=== PATIENT | male | born 1960 | race Caucasian/White ===

== ENCOUNTER 2016-10-29 12:27 | Day surgery (SDC) | payer MEDICARE, MEDICAID ==
[2016-10-29] VITALS (7 sets, daily range): BP systolic 123–135; BP diastolic 81–95; PULSE 61–80; RESP 16–18; TEMP 96–98; O2SAT 97–98
[~2016-10-29] VITALS: Ht 170.2 cm; Wt 71.0 kg
[~2016-10-29 12:27] MED LIST: ALBUAER3 INH; ALPR.25 PO; ASPI81TA11 PO; CARV6.25 PO; HYDR25TA35 PO; IPRASOL NEB; OXYC-392 PO; PRED5PAK2 PO; SACU1TAB PO; SPIR25TA PO; SYMB80AE INH; ZITH250T PO
[2016-10-29] MEDS ORDERED: CHLORHEXIDINE GLUCONATE 2 % 1 PACK (2 CLOTHS) TOPICAL SCH (13:00)
[2016-10-29] MEDS ORDERED: INSULIN HUMAN REGULAR 1,000 UNITS/10 ML VIAL SQ PRN (13:00)
[2016-10-29] MEDS ORDERED: SODIUM CHLORID 0.9% 500 ML IV PRN (13:00)
[2016-10-29] MEDS ORDERED: NS 1000 ML IV SCH (13:00)
[2016-10-29] MEDS ORDERED: CHLORHEXIDINE GLUCONATE 2 % 1 PACK (2 CLOTHS) TOPICAL PRN (13:00)
[2016-10-29] MEDS ORDERED: POVIDONE IODINE 5% (ANTISEPSIS KIT) 4 APPLICATIONS EACH NARE PRN (13:00)
[2016-10-29] MEDS ORDERED: LACTATED RINGER'S 1000 ML IV PRN (13:00)
[2016-10-29] MEDS ORDERED: MUPIROCIN 2% OINT 1 APPLIC/GM SYR NASAL SCH (13:00)
[2016-10-29] MEDS ORDERED: METOPROLOL TARTRATE 25 MG TAB PO PRN (13:00)
[2016-10-29] MEDS ORDERED: POVIDONE IODINE 5% (ANTISEPSIS KIT) 4 APPLICATIONS EACH NARE SCH (13:00)
[2016-10-29] MEDS ORDERED: ceFAZolin 2 GM PREMIX 50 ML IV SCH (13:00)
[2016-10-29 13:31] LABS: AUTOMATED NEUTROPHIL # 5.2 TH/MM3 (1.8-7.7); BASOPHIL # 0.1 TH/MM3 (0-0.2); BASOPHIL % 0.8 % (0.0-2.0); EOSINOPHIL # 0.2 TH/MM3 (0-0.4); EOSINOPHIL % 2.3 % (0.0-4.0); HEMATOCRIT 45.2 % (39.0-51.0); HEMO FLAGS DIFF FINAL; LYMPH % 23.5 % (9.0-44.0); LYMPHOCYTE # 1.9 TH/MM3 (1.0-4.8); MEAN CELL VOLUME 90.9 FL (80.0-100.0); MEAN CORPUSCULAR HEMOGLOBIN 32.2 PG (27.0-34.0); MEAN CORPUSCULAR HGB CONC 35.4 % (32.0-36.0); MONO % 10.3 % (0.0-8.0); NEUT % 63.1 % (16.0-70.0); PLATELET COUNT 210 TH/MM3 (150-450); RED BLOOD COUNT 4.97 MIL/MM3 (4.50-5.90); RED CELL DISTRIBUTION WIDTH 13.9 % (11.6-17.2); WHITE BLOOD COUNT 8.2 TH/MM3 (4.0-11.0)
[2016-10-29 13:42] LABS: APTT (PATIENT) 27.6 SEC (24.3-30.1); INTERNATIONAL NORMALIZED RATIO 0.9 RATIO; PROTHROMBIN TIME - PATIENT 10.2 SEC (9.8-11.6)
[2016-10-29 14:03] LABS: BICARBONATE 27.4 MEQ/L (21.0-32.0)
[2016-10-29] MEDS ORDERED: ALBUAER3 INH (14:15)
[2016-10-29] MEDS ORDERED: SODIUM CHLOR 0.9% 250 ML INJ 250 ML ONE (15:08)
[2016-10-29] MEDS ORDERED: VANCOMYCIN HCL 1000 MG VIAL ONE (15:08)
[2016-10-29] MEDS ORDERED: MIDAZOLAM HCL 2 MG/2 ML VIAL ONE (17:48)
[2016-10-29] MEDS ORDERED: LIDOCAINE HCL 2% 50 ML VIAL ONE (17:49)
[2016-10-29] MEDS ORDERED: PROPOFOL 200 MG/20 ML AMP IV ONE (19:00)
[2016-10-29] MEDS ORDERED: ZOLPIDEM TARTRATE 5 MG TAB PO PRN (19:00)
[2016-10-29] MEDS ORDERED: ALBUTEROL SULFATE 90 MCG/ACT HFA 18 GM INHALER INH PRN (19:00)
[2016-10-29] MEDS ORDERED: traMADol HCL 50 MG TAB PO PRN (19:00)
[2016-10-29] MEDS ORDERED: ALBUTEROL SULFATE 90 MCG/ACT HFA 8 GM INHALER INH PRN (19:00)
[2016-10-29] MEDS ORDERED: DO NOT ADM ANY ANTICOAGULANT DRUGS PRN (20:00)
--- NOTE | 2016-10-29 20:45 | RADRPT ---
EXAM DATE/TIME: 10/29/2016 20:47 [facility] COMPARISON: CHEST SINGLE AP, July 05, 2016, 16:48. INDICATIONS : Post pacemaker placement. MEDICAL HISTORY : Chronic obstructive pulmonary disease. Lymphoma. Cardiovascular disease SURGICAL HISTORY : Pacemaker. ENCOUNTER: Initial ACUITY: 1 day PAIN SCORE: Non-responsive. LOCATION: Bilateral chest FINDINGS: A single view of the chest demonstrates the lungs to be symmetrically aerated without evidence of mas s, infiltrate or effusion. The cardiomediastinal contours are unremarkable. Osseous structures are intact. There is been interval placement of a left subclavian transvenous pacer with the tip projecte d over the lower heart. There is no pneumothorax. CONCLUSION: Interval placement of left subclavian transvenous pacer with no evidence of pneumothorax. Doc Hsu MD on October 29, 2016 at 20:43 Board Certified Radiologist. This report was verified electronically.
[2016-10-29] MEDS: SACUBITRIL/VALSARTAN 24 MG-26 MG TAB PO SCH (20:50)
[2016-10-30] VITALS (12 sets, daily range): BP systolic 125–141; BP diastolic 80–96; PULSE 62–146; RESP 16–18; TEMP 97.9–98.1; O2SAT 96–97
[2016-10-30] MEDS ORDERED: VANCOMYCIN INJ 1,000 MG in SODIUM CHLOR 0.9% 250 ML INJ 250 ML IV ONE (07:00)
--- NOTE | 2016-10-30 07:04 | MP ---
cc: LIDIA KERR GLEN DATE OF SURGERY 10/29/2016 PROCEDURE Single chamber (with atrial sensing capability) AICD implantation via the left subclavian vein, AICD defibrillation threshold testing. OPERATIVE NOTE The patient was brought to the operating suite in a fasting state after having signed informed consent. The left upper chest was prepped and draped as per policy and anesthetized with 1% lidocaine. Central venous access was obtained via the left subclavian vein using modified Seldinger technique after administration of 15 cc of contrast through a left arm IV. A transverse incision was made and using blunt dissection, a subcutaneous pocket was formed down to the pectoralis fascia. Over the guidewire, an 8-Albanian sheath was placed and through this sheath, an active fixation AICD ventricular lead was introduced and its tip positioned in the right ventricular apex where good current of injury, stimulation threshold (0.8 volts) and sensitivity (9.2 mV) were demonstrated. Atrial sensing was also good at 4.5 mV in this position. The lead was secured into place using 2-0 silk ties down to the pectoralis fascia. The lead was then connected to the AICD generator which is a Biotronik Iperia device. The lead and the generator were placed in the subcutaneous pocket which was closed using 3-0 Vicryl interrupted stitches in two to three layers to close the subcutaneous tissue and then 4-0 Monocryl running stitch to close the subcuticular tissue. Overlapping Steri-Strips and a dressing were applied. Testing of the device was also done. Ventricular fibrillation was induced. The patient was successfully rescued with a 30 joules shock at a charge time was 6.4 seconds at a shock impedance of 68 ohms. The patient was not rescued at 20 joules. There were no apparent immediate complications. A portable chest x-ray is pending at the time of this dictation. CONCLUSION Successful single chamber (with atrial sensing capability) AICD implantation via the left subclavian vein using a Biotronik Iperia AICD generator, status post defibrillation threshold testing. MD REMY Mohr/DAMIEN /7:02 PM /6:55 AM MTDD
--- NOTE | 2016-10-30 08:02 | PD.CARD.PN ---
Subjective Subjective Remarks Denies pain, dyspnea, dizziness, palpitations. Objective Medications Item Value Date Time Aspirin 81 mg 10/30/16 0900 (Ecotrin Ec) DAILY/PO Sacubitril/ 1 tab 10/29/16 2100 Valsartan BID/PO 10/29/162049 (Entresto 24-26 Mg) Vital Signs / I&O Vital Signs Date Time Temp Pulse Resp B/P Pulse Ox O2 Delivery O2 Flow Rate FiO2 10/30/16 06:00 64 10/30/16 05:16 67 10/30/16 04:00 62 10/30/16 03:10 97.9 62 16 125/80 96 10/30/16 03:00 69 10/30/16 02:07 85 10/30/16 01:00 80 10/30/16 00:00 72 10/29/16 23:20 97 Nasal Cannula 10/29/16 23:20 97.8 78 16 123/81 97 10/29/16 23:00 80 10/29/16 22:00 78 10/29/16 21:00 74 10/29/16 20:14 63 10/29/16 20:10 96.0 61 16 133/93 97 10/29/16 20:10 97 Nasal Cannula 1.50 10/29/16 20:05 98 Nasal Cannula 3.00 10/29/16 20:00 97.2 67 16 99 Nasal Cannula 3 10/29/16 19:45 63 16 109/86 99 Nasal Cannula 3 10/29/16 19:30 58 16 133/93 99 Nasal Cannula 3 10/29/16 19:19 61 16 122/86 95 Nasal Cannula 3 10/29/16 14:08 98.0 78 18 135/95 98 I/O 10/29/16 10/29/16 10/29/16 10/30/16 10/30/16 10/30/16 07:00 15:00 23:00 07:00 15:00 23:00 Intake Total 400 ml 360 ml Output Total 400 ml Balance 400 ml -40 ml Intake Oral 360 ml IV Total 400 ml Output Urine Total 400 ml # Bowel Movements 0 Physical Exam AICD site clean, dry, intact, nontender, no hematoma. Laboratory Laboratory Tests Test 10/29/16 13:15 White Blood Count 8.2 TH/MM3 Red Blood Count 4.97 MIL/MM3 Hemoglobin 16.0 GM/DL Hematocrit 45.2 % Mean Corpuscular Volume 90.9 FL Mean Corpuscular Hemoglobin 32.2 PG Mean Corpuscular Hemoglobin 35.4 % Concent Red Cell Distribution Width 13.9 % Platelet Count 210 TH/MM3 Mean Platelet Volume 9.3 FL Neutrophils (%) (Auto) 63.1 % Lymphocytes (%) (Auto) 23.5 % Monocytes (%) (Auto) 10.3 % Eosinophils (%) (Auto) 2.3 % Basophils (%) (Auto) 0.8 % Neutrophils # (Auto) 5.2 TH/MM3 Lymphocytes # (Auto) 1.9 TH/MM3 Monocytes # (Auto) 0.8 TH/MM3 Eosinophils # (Auto) 0.2 TH/MM3 Basophils # (Auto) 0.1 TH/MM3 CBC Comment DIFF FINAL Differential Comment Prothrombin Time 10.2 SEC Prothromb Time International 0.9 RATIO Ratio Activated Partial 27.6 SEC Thromboplast Time Sodium Level 140 MEQ/L Potassium Level 4.0 MEQ/L Chloride Level 105 MEQ/L Carbon Dioxide Level 27.4 MEQ/L Anion Gap 8 MEQ/L Blood Urea Nitrogen 19 MG/DL Creatinine 1.21 MG/DL Estimat Glomerular Filtration 62 ML/MIN Rate Random Glucose 80 MG/DL Calcium Level 9.4 MG/DL Imaging Last 48 hours Impressions Chest X-Ray 10/29/16 0000 Signed Impressions: Service Date/Time: Saturday, October 29, 2016 20:47 - CONCLUSION: Interval placement of left subclavian transvenous pacer with no evidence of pneumothorax. Doc Hsu MD Assessment and Plan Problem List: (1) S/P implantation of automatic cardioverter/defibrillator (AICD) Assessment and Plan: Stable overnight. ICD site OK. ICD re-interrogation shows stable ICD/pacing parameters. To discharge today, same home medications plus Levaquin 500 mg qd for 5 days, one week f/u for incision/ICD recheck. (2) NICM (nonischemic cardiomyopathy) Assessment and Plan: Stable. Compensated. Patient has been on carvedilol also , will check office notes for dosing. Continue Entresto. Code Status full code Discussed Condition With patient Rajat Gordillo MD Oct 30, 2016 08:02
[2016-10-30] MEDS ORDERED: LEVA500T PO (08:05)
[2016-10-30] MEDS: SACUBITRIL/VALSARTAN 24 MG-26 MG TAB PO SCH (08:56)
[2016-10-30] MEDS ORDERED: ASPIRIN EC 81 MG TABEC PO SCH (09:00)
== END 2016-10-30 09:23 | disposition home or self-care (01) ==
LOC: HCAT 12:27 → HDIC 12:32 → HCIS 20:11 → HCAT 10-30 09:23
PROVIDERS: ATTEND Internal Medicine Cardiovascular Disease
DX: I11.0 Hypertensive heart disease with heart failure (principal); I50.20 Unspecified systolic (congestive) heart failure; I42.9 Cardiomyopathy, unspecified; R07.89 Other chest pain; J44.9 Chronic obstructive pulmonary disease, unspecified; J45.909 Unspecified asthma, uncomplicated
CPT/HCPCS: 00530; 33249; 71010; 80048; 85025; 85610; 85730; 93641; C1722; C1777; J0690; J2250; J3010; J3370; J7050

== ENCOUNTER 2016-11-21 13:03 | Emergency (ER) | payer MEDICARE, MEDICAID ==
[~2016-11-21] VITALS: Ht 170.2 cm; Wt 70.0 kg
[~2016-11-21 13:03] MED LIST changes: -ALPR.25 PO; -CARV6.25 PO; -HYDR25TA35 PO; -IPRASOL NEB; +LEVA500T PO; -PRED5PAK2 PO; -SPIR25TA PO; -SYMB80AE INH; -ZITH250T PO
[2016-11-21 13:06] VITALS: BP 153/91; PULSE 98; RESP 15; TEMP 98.1; O2SAT 98
--- NOTE | 2016-11-21 13:11 | PD ---
Physical Exam Date Seen by Provider: November 21, 2016 Time Seen by Provider: 13:09 Narrative Pt sent by doctor for evaluation of right lower leg swelling and redness, r/o blood clot. Foot is cold and numb, warmth on ankle. This started yesterday. PCP is Dr. Mora. Hx of lymphoma, pacemaker, CABG, brain aneurysm, no hx of DVT. VSS. Pt endorses daily tobacco use. VSS. Data Data Last Documented VS Vital Signs Date Time Temp Pulse Resp B/P Pulse Ox O2 Delivery O2 Flow Rate FiO2 11/21/16 13:06 98.1 98 15 153/91 98 MDM Supervised Visit with ZEKE: Delores Jj November 21, 2016 13:11
--- NOTE | 2016-11-21 13:29 | PD ---
HPI Chief Complaint: Pain: Acute or Chronic Time Seen by Provider: 13:29 Travel History International Travel<30 days: No Contact w/Intl Traveler<30days: No Traveled to known affect area: No History of Present Illness HPI 56-year-old male presents to the emergency department sent by his primary care physician, Dr. Mora. Patient complained of right leg pain that started yesterday. Patient states it is worse with walking and putting pressure. Pain is worse at the ankle joint. Patient reports recent pacemaker insertion. He was in the hospital 2 weeks ago. He has a past medical history of COPD, hypertension, hyperlipidemia, hepatitis C, non-Hodgkin's lymphoma, aneurysm, pacemaker/AICD placement, ischemic cardiomyopathy, CHF. Patient states he last uses nebulizer treatments yesterday, has not used any today. He does report chronic shortness of breath. Dr. Mora highly suspected thrombotic event in the right leg. He also was concerned of possible arterial occlusion due to coldness in the right foot. Patient also states he had a 2 L bottle of soda dropped on his left foot 2 days ago and has ecchymosis and tenderness to the left foot. Patient reports chronic shortness of breath which is not worse than normal. He denies any chest pain. PFSH Past Medical History Asthma: Yes Blood Disorders: No Anxiety: Yes Depression: No Heart Rhythm Problems: No Cancer: Yes (lymphoma) Cardiac Catheterization: Yes Cardiovascular Problems: Yes (CHF) High Cholesterol: No Chemotherapy: Yes (1999) Chest Pain: No Congestive Heart Failure: Yes COPD: Yes Diabetes: No Diminished Hearing: No Endocrine: No Gastrointestinal Disorders: No Glaucoma: No Genitourinary: No Hepatitis: Yes Hiatal Hernia: No Hypertension: Yes Immune Disorder: No Medical other: Yes (LYMPHOMA ) Musculoskeletal: Yes (arthritis) Neurologic: Yes (aneyrusym clip 2007) Psychiatric: No Reproductive: No Respiratory: Yes (COPD, ASTHMA) Integumentary: No Migraines: Yes Radiation Therapy: Yes (2000) Sleep Apnea: No Thyroid Disease: No Influenza Vaccination: No Past Surgical History Body Medical Devices: AICD 2016 Cardiac Surgery: Yes Thoracic Surgery: Yes (pt said he had a open heart surgery) Social History Alcohol Use: Yes (occassionally ) Tobacco Use: Yes Substance Use: Yes (THC, OTHERS, PT ADMITS TO IV DRUG USE) Allergies-Medications (Allergen,Severity, Reaction): Coded Allergies: No Known Allergies (Unverified , 11/21/16) Reported Meds & Prescriptions Reported Meds & Active Scripts Active Entresto (Sacubitril-Valsartan) 24-26 Mg Tab 1 Tab PO BID 30 Days Aspirin EC (Aspirin) 81 Mg Tabdr 81 Mg PO DAILY 30 Days Reported Albuterol Neb (Albuterol Sulfate) 2.5 Mg/3 Ml Neb 2.5 Mg NEB TID Diclofenac Sodium DR (Diclofenac Sodium) 75 Mg Tabdr 75 Mg PO BID Take with food or milk Gabapentin 300 Mg Cap 300 Mg PO TID Coreg (Carvedilol) 6.25 Mg Tab 6.25 Mg PO QID Hydralazine (Hydralazine HCl) 25 Mg Tab 50 Mg PO BID Take with a meal Aldactone (Spironolactone) 25 Mg Tab 25 Mg PO DAILY Proair Hfa 8.5 GM Inh (Albuterol Sulfate) 90 Mcg/Act Aer 2 Puff INH Q4HR PRN 108 mcg/actuation Review of Systems Except as stated in HPI: all other systems reviewed are Neg Physical Exam Narrative GENERAL: Well-nourished, well-developed male patient, ambulatory. Afebrile. SKIN: Focused skin assessment warm/dry. Patient has mild erythema to the right ankle joint with a faint red streak that extends up the right medial calf. No swelling. HEAD: Normocephalic. Atraumatic. EYES: No scleral icterus. No injection or drainage. NECK: Supple, trachea midline. No JVD or lymphadenopathy. CARDIOVASCULAR: Regular rate and rhythm without murmurs, gallops, or rubs. Left pedal pulse 2+. Right pedal pulse found with Doppler without issue. Capillary refill less than 2 seconds to the digits of the right foot. RESPIRATORY: Breath sounds equal bilaterally. No accessory muscle use. Lungs sounds were expiratory wheezes throughout. GASTROINTESTINAL: Abdomen soft, non-tender, nondistended. MUSCULOSKELETAL: No cyanosis, or edema. Patient has tenderness to right calf with a positive Homans sign. No swelling noted. Right foot is cooler than left foot. BACK: Nontender without obvious deformity. No CVA tenderness. Data Data Last Documented VS Vital Signs Date Time Temp Pulse Resp B/P Pulse Ox O2 Delivery O2 Flow Rate FiO2 11/21/16 13:21 80 16 11/21/16 13:06 98.1 153/91 98 Orders Albuterol-Ipratropium Neb (Duoneb Neb) (11/21/16 13:30) Iv Access Insert/Monitor (11/21/16 13:27) Complete Blood Count With Diff (11/21/16 13:27) Basic Metabolic Panel (Bmp) (11/21/16 13:27) Act Partial Throm Time (Ptt) (11/21/16 13:27) Prothrombin Time / Inr (Pt) (11/21/16 13:27) Us Leg Venous Doppler (11/21/16 ) Foot, Complete ([id number]) (11/21/16 ) Cta Runoff W Iv Contrast W 3d (11/21/16 ) Iohexol 350 Inj (Omnipaque 350 Inj) (11/21/16 15:27) Splint Or Brace Apply/Monitor (11/21/16 18:05) Labs Laboratory Tests Test 11/21/16 13:25 White Blood Count 7.8 TH/MM3 Red Blood Count 4.66 MIL/MM3 Hemoglobin 14.6 GM/DL Hematocrit 43.3 % Mean Corpuscular Volume 92.9 FL Mean Corpuscular Hemoglobin 31.3 PG Mean Corpuscular Hemoglobin 33.7 % Concent Red Cell Distribution Width 13.4 % Platelet Count 164 TH/MM3 Mean Platelet Volume 9.7 FL Neutrophils (%) (Auto) 68.3 % Lymphocytes (%) (Auto) 16.4 % Monocytes (%) (Auto) 9.9 % Eosinophils (%) (Auto) 3.4 % Basophils (%) (Auto) 2.0 % Neutrophils # (Auto) 5.3 TH/MM3 Lymphocytes # (Auto) 1.3 TH/MM3 Monocytes # (Auto) 0.8 TH/MM3 Eosinophils # (Auto) 0.3 TH/MM3 Basophils # (Auto) 0.2 TH/MM3 CBC Comment DIFF FINAL Differential Comment Prothrombin Time 10.2 SEC Prothromb Time International 0.9 RATIO Ratio Activated Partial 26.9 SEC Thromboplast Time Sodium Level 138 MEQ/L Potassium Level 3.7 MEQ/L Chloride Level 105 MEQ/L Carbon Dioxide Level 26.8 MEQ/L Anion Gap 6 MEQ/L Blood Urea Nitrogen 16 MG/DL Creatinine 1.12 MG/DL Estimat Glomerular Filtration 67 ML/MIN Rate Random Glucose 100 MG/DL Calcium Level 8.9 MG/DL MDM Medical Decision Making Medical Screen Exam Complete: Yes Emergency Medical Condition: Yes Medical Record Reviewed: Yes Interpretation(s) Last Impressions Lower Extremity Ultrasound 11/21/16 0000 Signed Impressions: Service Date/Time: November 15:36 - CONCLUSION: No DVT is identified in the right lower extremity. Juan Coley MD Foot X-Ray 11/21/16 0000 Signed Impressions: Service Date/Time: November 13:29 - CONCLUSION: Lateral, distal soft tissue swelling and an apparent nondisplaced fracture of the little toe proximal phalanx. Juan Quiñones MD Aorta w/Runoff CTA 11/21/16 0000 Signed Impressions: Service Date/Time: November 15:08 - CONCLUSION: 1. Mild scattered plaque with patent inflow, outflow, and runoff bilaterally. 2. 4 mm left lower lobe pulmonary nodule. Current guidelines suggest a repeat CT of the thorax in 12 months. Parmjit Leblanc Jr., MD Differential Diagnosis DVT versus cellulitis versus PVD Narrative Course 56-year-old male presents to the emergency department for evaluation of right calf and foot pain. There is erythema with a slight red streak that extends up the right medial calf. His primary care physician was concerned about possible arterial occlusion. Pedal pulses easily found with Doppler. Venous Doppler ultrasound the right lower extremity is ordered and pending. X-ray left foot is ordered and pending. CBC, BMP, PTT, PTT/INR ordered and pending. Patient reports chronic shortness of breath. Patient is given DuoNeb 2 due to expiratory wheezes. CTA runoff of the lower extremities is done to rule out arterial occlusion. CBC is unremarkable. BMP is unremarkable. Coags are unremarkable. Venous doppler US of the left lower extremity is negative for DVT. X-ray of the left foot shows lateral, distal soft tissue swelling and an apparent nondisplaced fracture of the little toe proximal phalanx. CT runoff of the othe lower extremities shows Mild scattered plaque with patent inflow, outflow, and runoff bilaterally. 2. 4 mm left lower lobe pulmonary nodule. Current guidelines suggest a repeat CT of the thorax in 12 months Patient is instructed to repeat CT of the thorax in 12 months and is given a copy of his CT report. My attending physician, Dr. Hird, saw patient and agrees with plan and disposition. Diagnosis Primary Impression: Peripheral artery disease Additional Impression: Toe fracture, left Qualified Code: S92.515A - Closed nondisplaced fracture of proximal phalanx of lesser toe of left foot, initial encounter Referrals: Primary Care Physician call for appointment Patient Instructions: General Instructions, Peripheral Artery Disease (ED), Toe Fracture (ED) Additional Instructions: Wear post op shoe and skinny tape small toe. Follow up with primary care physician. Repeat CT thorax in 12 months to monitor nodule. Return to the emergency department for any acute, worsening of symptoms. Med/Other Pt SpecificInfo: No Change to Meds Disposition: 01 DISCHARGE HOME Condition: Stable Marlene Berger November 21, 2016 13:29
[2016-11-21] MEDS ORDERED: RESP: ALBUTEROL 2.5 MG/IPRATROPIUM 0.5 MG NEB (SCH) INH (13:30)
[2016-11-21] MEDS ORDERED: SPIR25 PO (13:41)
[2016-11-21] MEDS ORDERED: DICL75TA PO (13:41)
[2016-11-21] MEDS ORDERED: HYDR25TA35 PO (13:41)
[2016-11-21] MEDS ORDERED: GABA300C5 PO (13:41)
[2016-11-21] MEDS ORDERED: ALBU0.08 NEB (13:41)
[2016-11-21] MEDS ORDERED: CARV6.25 PO (13:41)
[2016-11-21 13:57] LABS: AUTOMATED NEUTROPHIL # 5.3 TH/MM3 (1.8-7.7); BASOPHIL # 0.2 TH/MM3 (0-0.2); EOSINOPHIL # 0.3 TH/MM3 (0-0.4); EOSINOPHIL % 3.4 % (0.0-4.0); HEMATOCRIT 43.3 % (39.0-51.0); HEMO FLAGS DIFF FINAL; LYMPH % 16.4 % (9.0-44.0); LYMPHOCYTE # 1.3 TH/MM3 (1.0-4.8); MEAN CELL VOLUME 92.9 FL (80.0-100.0); MEAN CORPUSCULAR HEMOGLOBIN 31.3 PG (27.0-34.0); MEAN CORPUSCULAR HGB CONC 33.7 % (32.0-36.0); MONO % 9.9 % (0.0-8.0); NEUT % 68.3 % (16.0-70.0); PLATELET COUNT 164 TH/MM3 (150-450); RED BLOOD COUNT 4.66 MIL/MM3 (4.50-5.90); RED CELL DISTRIBUTION WIDTH 13.4 % (11.6-17.2); WHITE BLOOD COUNT 7.8 TH/MM3 (4.0-11.0)
[2016-11-21 14:07] LABS: APTT (PATIENT) 26.9 SEC (24.3-30.1); INTERNATIONAL NORMALIZED RATIO 0.9 RATIO; PROTHROMBIN TIME - PATIENT 10.2 SEC (9.8-11.6)
--- NOTE | 2016-11-21 14:11 | RADRPT ---
EXAM DATE/TIME: 11/21/2016 13:29 [facility] COMPARISON: No previous studies available for comparison. INDICATIONS : Distal left foot pain and swelling. MEDICAL HISTORY : Chronic obstructive pulmonary disease. Lymphoma. SURGICAL HISTORY : Cardiac cath. Chemotherapy. Radiation therapy. ENCOUNTER: Initial ACUITY: 1 week PAIN SCORE: 4/10 LOCATION: Left distal foot. FINDINGS: There is soft tissue swelling near the base of the little toe. A comminuted but essentially nondispla zack fracture involves the little toe proximal phalanx. The fracture is primarily in the mid shaft reg ion. Articular surfaces appear intact. No subluxations. No other fractures are demonstrated. Instantly seen bipartite tibial and fibular sesamoids CONCLUSION: Lateral, distal soft tissue swelling and an apparent nondisplaced fracture of the little toe proximal phalanx. Juan Quiñones MD on November 21, 2016 at 14:08 Board Certified Radiologist. This report was verified electronically.
[2016-11-21 14:14] LABS: BICARBONATE 26.8 MEQ/L (21.0-32.0); POTASSIUM 3.7 MEQ/L (3.5-5.1)
[2016-11-21] MEDS ORDERED: IOHEXOL 350 MG/ML 10 ML VIAL (for RAD DIAG) IV ONE (15:27)
--- NOTE | 2016-11-21 16:16 | RADRPT ---
EXAM DATE/TIME: 11/21/2016 15:36 [facility] COMPARISON: No previous studies available for comparison. INDICATIONS : Right leg pain. MEDICAL HISTORY : Congestive heart failure. Myocardial infarction. Hypertension. Hepatitis C. Lymphoma. SURGICAL HISTORY : Aneurysm clip. Open heart surgery. ENCOUNTER: Initial ACUITY: 1 day PAIN SCORE: 0/10 LOCATION: Right leg. TECHNIQUE: Venous ultrasound of the leg was performed from the inguinal ligament to the proximal calf. Real-lashae e, color Doppler and spectral tracing, compression and augmentation techniques were used. FINDINGS: There is normal compressibility of the deep venous system from the inguinal region to the proximal ca lf. No echogenic clot is seen in the lumen of the common femoral, femoral, popliteal, and posterior tibial veins. There is a normal response of the venous system to proximal and distal augmentation an d respiration. CONCLUSION: No DVT is identified in the right lower extremity. Juan Coley MD on November 21, 2016 at 16:13 Board Certified Radiologist. This report was verified electronically.
--- NOTE | 2016-11-21 17:38 | RADRPT ---
EXAM DATE/TIME: 11/21/2016 15:08 [facility] COMPARISON: No previous studies available for comparison. INDICATIONS : Evaluate for occlusion, right leg pain. IV CONTRAST: 80 cc Omnipaque 350 (iohexol) IV RADIATION DOSE: 15.98 CTDIvol (mGy) MEDICAL HISTORY : Hypertension. Hepatitis C. Lymphoma SURGICAL HISTORY : None. ENCOUNTER: Initial ACUITY: 1 day PAIN SCALE: 0/10 LOCATION: Runoff TECHNIQUE: Volumetric scanning was performed using a multi-row detector CT scanner. The data was post processed with a variety of visualization algorithms including full volume maximum intensity projection, multi -planar sliding thin slab reformation, curved planar reformation, and surface rendering techniques. Using automated exposure control and adjustment of the mA and/or kV according to patient size, radiat ion dose was kept as low as reasonably achievable to obtain optimal diagnostic quality images. FINDINGS: Aorta/inflow: Scattered atherosclerotic plaque throughout the infrarenal aorta. No aneurysmal change or stenosis. I n-Flow vessels are patent. Both internal iliac arteries are patent. The celiac, SMA, LAVELL and renal ar teries are patent. Right lower extremity: Scattered areas of noncalcified plaque throughout the outflow and runoff vessels without a hemodynami yao significant stenosis. Left lower extremity: Scattered areas of noncalcified plaque throughout the outflow and runoff vessels without a hemodynami yao significant stenosis. Note is made of a high origin to the anterior tibial artery arising off t he [id number] popliteal artery. Other structures: A 4 mm smoothly marginated nodules seen within the left lung base. A focal area of scarring is seen i nvolving the upper pole of the right kidney. Scattered colonic diverticuli without acute inflammation . CONCLUSION: 1. Mild scattered plaque with patent inflow, outflow, and runoff bilaterally. 2. 4 mm left lower lobe pulmonary nodule. Current guidelines suggest a repeat CT of the thorax in 12 months. Parmjit Leblanc Jr., MD on November 21, 2016 at 17:20 Board Certified Radiologist. This report was verified electronically.
--- NOTE | 2016-11-21 17:58 | PD ---
Physical Exam Narrative GENERAL: Well-nourished, well-developed patient. SKIN: Warm and dry. HEAD: Normocephalic and atraumatic. EYES: No injection or drainage. ENT: No nasal drainage noted. NECK: Supple, trachea midline. CARDIOVASCULAR: Regular rate and rhythm RESPIRATORY: no increased effort. No accessory muscle use. EXTREMITIES: Right foot is cold to touch, faintly palpable dorsalis pedis on right, no specific joint or calf pain, no lacerations over, compartments soft. NEUROLOGICAL: Awake and alert. Motor and sensory grossly within normal limits. Normal speech. Data Data Last Documented VS Vital Signs Date Time Temp Pulse Resp B/P Pulse Ox O2 Delivery O2 Flow Rate FiO2 11/21/16 13:21 80 16 11/21/16 13:06 98.1 153/91 98 Orders Albuterol-Ipratropium Neb (Duoneb Neb) (11/21/16 13:30) Iv Access Insert/Monitor (11/21/16 13:27) Complete Blood Count With Diff (11/21/16 13:27) Basic Metabolic Panel (Bmp) (11/21/16 13:27) Act Partial Throm Time (Ptt) (11/21/16 13:27) Prothrombin Time / Inr (Pt) (11/21/16 13:27) Us Leg Venous Doppler (11/21/16 ) Foot, Complete (Usf8pta) (11/21/16 ) Cta Runoff W Iv Contrast W 3d (11/21/16 ) Iohexol 350 Inj (Omnipaque 350 Inj) (11/21/16 15:27) Splint Or Brace Apply/Monitor (11/21/16 18:05) Labs Laboratory Tests Test 11/21/16 13:25 White Blood Count 7.8 TH/MM3 Red Blood Count 4.66 MIL/MM3 Hemoglobin 14.6 GM/DL Hematocrit 43.3 % Mean Corpuscular Volume 92.9 FL Mean Corpuscular Hemoglobin 31.3 PG Mean Corpuscular Hemoglobin 33.7 % Concent Red Cell Distribution Width 13.4 % Platelet Count 164 TH/MM3 Mean Platelet Volume 9.7 FL Neutrophils (%) (Auto) 68.3 % Lymphocytes (%) (Auto) 16.4 % Monocytes (%) (Auto) 9.9 % Eosinophils (%) (Auto) 3.4 % Basophils (%) (Auto) 2.0 % Neutrophils # (Auto) 5.3 TH/MM3 Lymphocytes # (Auto) 1.3 TH/MM3 Monocytes # (Auto) 0.8 TH/MM3 Eosinophils # (Auto) 0.3 TH/MM3 Basophils # (Auto) 0.2 TH/MM3 CBC Comment DIFF FINAL Differential Comment Prothrombin Time 10.2 SEC Prothromb Time International 0.9 RATIO Ratio Activated Partial 26.9 SEC Thromboplast Time Sodium Level 138 MEQ/L Potassium Level 3.7 MEQ/L Chloride Level 105 MEQ/L Carbon Dioxide Level 26.8 MEQ/L Anion Gap 6 MEQ/L Blood Urea Nitrogen 16 MG/DL Creatinine 1.12 MG/DL Estimat Glomerular Filtration 67 ML/MIN Rate Random Glucose 100 MG/DL Calcium Level 8.9 MG/DL [facility] Supervised Visit with ZEKE: Yes Interpretation(s) CBC & BMP Diagram 11/21/16 13:25 Last 24 hours Impressions Lower Extremity Ultrasound 11/21/16 0000 Signed Impressions: Service Date/Time: November 15:36 - CONCLUSION: No DVT is identified in the right lower extremity. Juan Coley MD Foot X-Ray 11/21/16 0000 Signed Impressions: Service Date/Time: November 13:29 - CONCLUSION: Lateral, distal soft tissue swelling and an apparent nondisplaced fracture of the little toe proximal phalanx. Juan Quiñones MD Aorta w/Runoff CTA 11/21/16 0000 Signed Impressions: Service Date/Time: November 15:08 - CONCLUSION: 1. Mild scattered plaque with patent inflow, outflow, and runoff bilaterally. 2. 4 mm left lower lobe pulmonary nodule. Current guidelines suggest a repeat CT of the thorax in 12 months. Parmjit Leblanc Jr., MD Narrative Course I, Dr. willis, have reviewed the advance practice practitioner's documentation and am in agreement, met with the patient face to face, made the diagnosis, and the medical decision making was done by me. *My assessment and Findings: 56-year-old male presents with right leg pain that is cool to touch. CT runoff will be added on to workup for DVT given cool leg and decreased pulse. CT runoff shows mild scattered plaque with patent flow, pulmonary nodule- patient given copy for follow-up,Patient denies any new complaints and states that they are feeling better. Patient happy with care, all questions answered. Patient knows that follow up is incumbent on them and to return to the emergency room immediately if new or worsening symptoms develop. Patient given strict return precautions, vitals reviewed and are normal, agrees to further workup as an outpatient. Diagnosis Primary Impression: Peripheral artery disease Additional Impressions: Leg pain, right Toe fracture Qualified Code: S92.912A - Closed fracture of phalanx of toe of left foot, physeal involvement unspecified, unspecified toe, initial encounter Patient Instructions: General Instructions Additional Instruction: Follow with primary this week, return as needed, Tylenol as needed Med/Other Pt SpecificInfo: No Change to Meds Disposition: 01 DISCHARGE HOME Condition: Stable Crystal Willis MD November 21, 2016 17:58
[2016-11-21 18:16] VITALS: BP 148/86
== END 2016-11-21 18:40 | disposition home or self-care (01) ==
LOC: NEPC 13:03
DX: I73.9 Peripheral vascular disease, unspecified (principal); M79.604 Pain in right leg; S92.515A Nondisplaced fracture of proximal phalanx of left lesser toe(s), initial encounter for closed fracture; J45.909 Unspecified asthma, uncomplicated; B19.20 Unspecified viral hepatitis C without hepatic coma; J44.9 Chronic obstructive pulmonary disease, unspecified; I25.5 Ischemic cardiomyopathy; I10 Essential (primary) hypertension; E78.5 Hyperlipidemia, unspecified; I50.9 Heart failure, unspecified; R06.02 Shortness of breath; Z95.810 Presence of automatic (implantable) cardiac defibrillator; Z95.0 Presence of cardiac pacemaker; Z72.0 Tobacco use
CPT/HCPCS: 73630; 75635; 80048; 85025; 85610; 85730; 93971; 94640; 94664; 99284; L3260; Q9967

== ENCOUNTER 2017-10-22 09:50 | Day surgery (SDC) | payer MEDICARE, OTHER ==
[~2017-10-22] VITALS: Ht 170.2 cm; Wt 68.4 kg
[~2017-10-22 09:50] MED LIST changes: +ALBU0.08 NEB; -ASPI81TA11 PO; +ASPI81TA23 PO; +CARV6.25 PO; +DICL75TA PO; +GABA300C5 PO; +HYDR25TA35 PO; -LEVA500T PO; -OXYC-392 PO; +SPIR25 PO
[2017-10-22] MEDS ORDERED: IOHEXOL 350 MG/ML 50 ML BTL (for Cath Lab) OTHER ONE (09:51)
[2017-10-22 10:46] VITALS: BP 136/88; PULSE 82; RESP 18; TEMP 97.8; O2SAT 97
[2017-10-22 10:53] LABS: AUTOMATED NEUTROPHIL # 6.6 TH/MM3 (1.8-7.7); BASOPHIL # 0.1 TH/MM3 (0-0.2); EOSINOPHIL # 0.1 TH/MM3 (0-0.4); EOSINOPHIL % 1.5 % (0.0-4.0); HEMATOCRIT 42.3 % (39.0-51.0); HEMOGLOBIN 14.5 GM/DL (13.0-17.0); LYMPH % 17.7 % (9.0-44.0); LYMPHOCYTE # 1.7 TH/MM3 (1.0-4.8); MEAN CELL VOLUME 91.3 FL (80.0-100.0); MEAN CORPUSCULAR HEMOGLOBIN 31.3 PG (27.0-34.0); MEAN CORPUSCULAR HGB CONC 34.3 % (32.0-36.0); MEAN PLATELET VOLUME 8.4 FL (7.0-11.0); MONO % 12.3 % (0.0-8.0); MONOCYTE # 1.2 TH/MM3 (0-0.9); NEUT % 67.5 % (16.0-70.0); PLATELET COUNT 261 TH/MM3 (150-450); RED BLOOD COUNT 4.63 MIL/MM3 (4.50-5.90); RED CELL DISTRIBUTION WIDTH 19.5 % (11.6-17.2); WHITE BLOOD COUNT 9.8 TH/MM3 (4.0-11.0)
[2017-10-22] MEDS ORDERED: NS 1000P @30 MLS/HR (KVO) IV SCH (11:00)
[2017-10-22] MEDS ORDERED: HYDR-3801 PO (11:01)
[2017-10-22 11:05] LABS: BICARBONATE 29.2 MEQ/L (21.0-32.0); CALCIUM 9.4 MG/DL (8.5-10.1); CREATININE 1.27 MG/DL (0.60-1.30)
[2017-10-22] MEDS ORDERED: MIDAZOLAM HCL 2 MG/2 ML VIAL ONE (11:16)
[2017-10-22] MEDS ORDERED: HEPARIN-NS/PF FLUSH BAG 2,000 ML IV FLUSH ONE (11:16)
[2017-10-22] MEDS ORDERED: POTASSIUM CHLORIDE 10 MEQ CONTROLLED RELEASE TAB PO STA (11:38)
--- NOTE | 2017-10-22 12:23 | CATHPROC ---
[employer] HIS Report Study Information Study Number Admission Scheduled Start Study Start [id number] Oct 22 2017 9:50AM 10/22/2017 Oct 22 2017 10:49AM [facility] Cardiac Catheterization Admit Source Facility Department Other [facility] [employer] Physician and Clinical Staff Initial Edinson Villeda Facility Practice Specialist Sondra Lewis,LEANNA Other cathlab, cathlab Recorder Sharron Salinas,BOLOGNA MAKER TECH2 Scrub Talita Vicente ,RT(R) Procedures Performed Procedure Location (Site) Vessel Name Coronary Angiograms LCA Left Coronary Coronary Angiograms RCA Right Coronary L Heart Cath Wire insertion Fem Art (right) Femoral Art Equipment Time Rn Registry Description Size Mfg Part Number Used/Scraped TRANSDUCER, TRUWAVE [id number] 11:16 NELSON GRULLON * Used W/STOCKCOCK *[id number] INTRODUCER SET, 11:16 [employer] FR 5 [id number] *[id number] Used MICROPUNCTURE STIFF [id number] *[id number] 11:16 [employer] IND[employer]RIES PACK, CCL CUSTOM * Used *[id number] 11:35 MEDTRONIC JR 4.0 DXTERITY CATHETER FR 5 Used *[id number] 11:16 Mini[employer]ke MEDICAL WIRE, 3MMJ .035 180CM 180CM Used *[id number] 11:16 NAMIC MANIFOLD, 4 PORT * Used *[id number] 11:16 NYCOMED OMNIPAQUE, 350 MG, 150ML 150ML [id number] Used [id number] 11:16 [employer] BLANKET,WARM AIR CCL * Used *[id number] 11:16 TERUMO MEDICAL SHEATH, FR5 TERUMO (10CM) FR 5 Used *[id number] Equipment Model, Serial, Lot Number and Expiration Data Description Model Number Serial Number Lot Number Expiration Date JR 4.0 DXTERITY CATHETER [id number] 04-28-2020 History: Current Medications Medication Dosage/Unit Route Frequency Last Date/Time Taken Albuterol ASA CARVEDILOL History: Allergies Allergy Reaction No Known Allergies History: Risk Factors Family History of Hypertension Dyslipidemia Previous [place] Previous Heart Failure Premature CAD Yes No Yes No No Prior Valve Prior PCI Prior CABG Surgery No No No Cerebrovascular Peripheral Artery Chronic Lung On Dialysis Diabetes Disease Disease Disease No No No Yes No History: Risk Factors Selection Items Current Smoker History: Symptoms/Diagnosis Selection Items Chest pain History: CV Disease Selection Items Cardiomyopathy nonischemic History: Stress Tests Stress or Imaging Studies Performed No History: Other Disease Selection Items COPD HTN History: Other Current Smoker Method Packs a Day Years Used Pack Years Yes Cigarettes 1 30 30 Labs Hgb (g/dl) Hct (%) WBC (l/cumm) Platelets (thousands) 11.60-17.00 35.00-51.00 4.00-11.00 150.00-450.00 14.5 42.3 9.8 261 Glucose (mg/dl) BUN (mg/dl) Creatinine (mg/dl) BUN:Creatinine (1:x) 74.00-106.00 7.00-18.00 0.50-1.30 10.00-20.00 82 20 1.2 16.7 Na (meq/l) K (meq/l) 136.00-145.00 3.50-5.10 135 3.1 INR (PTT:PT) 0.90-1.10 1 Medication Medication Total Dose (Bolus/Oral) Medication Total Dosage/Unit 1% XYLOCAINE 10 mL FENTANYL 25 mcg POTASSIUM CHLORIDE 40 meq Medications (Bolus/Oral) Medication Time Given Dosage/Unit Administered By Reason POTASSIUM CHLORIDE 10/22/2017 11:48:07 AM 40 meq Sondra Lewis 40 meq POTASSIUM CHLORIDE given in lab by Sondra Lewis RN via Oral. Ordered by Edinson Ramon 1% XYLOCAINE 10/22/2017 11:53:42 AM 10 mL Edinson Ramon 10 mL 1% XYLOCAINE given in lab by Edinson Ramon in Right Groin via Subcutaneous. Ordered by Edinson Weston FENTANYL 10/22/2017 11:54:54 AM 25 mcg Sondra Lewis 25 mcg FENTANYL given in lab by Sondra Lewis, LEANNA via Peripheral IV. Ordered by Edinson Ramon Medication (Drip) Medication Time Given Dosage/Unit Concentration/Unit Diluent (ml) Solution IV Solutions 10/22/2017 11:10:07 AM 0 mL (IV) 500 NaCl .9 IV Solutions given in lab by Sondra Lewis, LEANNA in Left Antecubital via Peripheral IV. Pump/Drip Flow = 20 ml/hr using NaCl .9. Ordered by Edinson Ramon Initial Case Assessment Cardiovascular HR NIBP Chest Pain 71 139/89 0 Edema Present Skin color Skin None Normal Warm Dry Circulatory - Right Pulses Dorsalis Pedis Femoral 1 3 Scale (0,1,2,3,4,d) Circulatory - Left Pulses Dorsalis Pedis Femoral 1 3 Scale (0,1,2,3,4,d) Neurological State Oriented to time-place- Alert Moves all extremities person Respiration - General Respiration Rate SpO2 (%) (B/min) 16 96 Final Case Assessment Cardiovascular HR Rhythm NIBP Chest Pain 78 SR 139/89 0 Edema Present Skin color Skin None Normal Warm Dry Circulatory - Right Pulses Dorsalis Pedis Femoral 1 3 Scale (0,1,2,3,4,d) Circulatory - Left Pulses Dorsalis Pedis Femoral 1 3 Scale (0,1,2,3,4,d) Neurological State Oriented to time-place- Alert Moves all extremities person Respiration - General Respiration Rate SpO2 (%) (B/min) 16 97 Chronological Log Time Study Chronological Log 11:09:52 Patient arrived via Bed. 11:09:53 Patient Name, D.O.B, / Armband Verified By R.N. 11:09:53 Consent signed by the physician and the patient and verified by the [employer] staff. 11:09:54 Pre-op and post- op instructions given; patient acknowledges understanding of instructions. 11:09:56 Allens test performed on the left radial and ulnar artery. 11:09:58 Patient has been NPO for More than 6Hrs. 11:10:00 NO Skin Breakdown- 11:10:06 A # 20 IV was noted in the Antecubital (left). Grade = 0 11:10:06 A # 20 IV was noted in the Forearm (right). Grade = 0 IV Solutions given in lab by Sondra Lewis, RN in Left Antecubital via Peripheral IV. Pump/Dri p Flow = 20 ml/hr using 11:10:07 NaCl .9. Ordered by Edinson Ramon 11:10:08 History and physical on the chart or being dictated. Vitals capture started with the following parameters, Patient=Adult, Interval=5 min, Initial Pr pcukuu=146 mmHg, 11:16:22 Deflation Rate=5 mmHg, Cuff placed on Left Arm 11:17:04 HR=71 bpm, LSSQ=217/89 mmhg, SpO2=96.0 %, Resp=16 B/min, Pain=0, Candy=10, Jnoes=2 11:18:22 Reference ECG taken Assessment: Initial Case, HR=71 BPM, FIAT=467/89 mmhg, Chest Pain=0, Edema=None, Color=Normal, Skin = Warm, Dry Right Pulses: Benji Ped=1, Femoral=3 11:18:25 Left Pulses: Benji Ped=1, Femoral=3 Neurological: State=Alert, Ox3, LESTER Respiration: Resp=16 B/min, SpO2=96 % 11:21:59 HR=77 bpm, EEZB=753/91 mmhg, SpO2=95.0 %, Resp=12 B/min, Pain=0, Candy=10, Jones=2 11:22:13 Bilateral groins prepped with 2% chlorhexidine, and draped after a 3 minute waiting time. 11:26:58 HR=74 bpm, JDQE=881/94 mmhg, SpO2=96.0 %, Resp=13 B/min, Pain=0, Candy=10, Jones=2 11:31:29 Pressure channel 1 zero failed. 11:31:37 Pressure channel 1 zeroed. 11:32:01 HR=79 bpm, LRIP=252/89 mmhg, SpO2=93.0 %, Resp=14 B/min, Pain=0, Candy=10, Jones=2 11:36:09 MD arrived. 11:37:02 HR=78 bpm, OYZK=228/88 mmhg, SpO2=94.0 %, Resp=13 B/min, Pain=0, Candy=10, Jones=2 11:42:01 HR=78 bpm, MSYV=303/92 mmhg, SpO2=93.0 %, Resp=13 B/min, Pain=0, Candy=10, Jones=2 11:47:03 HR=84 bpm, JBLS=243/97 mmhg, SpO2=94.0 %, Resp=13 B/min, Pain=0, Candy=10, Jones=2 11:48:07 40 meq POTASSIUM CHLORIDE given in lab by Sondra Lewis, LEANNA via Oral. Ordered by Edinson Ramon 11:52:02 HR=77 bpm, CWQI=522/100 mmhg, SpO2=96.0 %, Resp=14 B/min, Pain=0, Candy=10, Jones=2 Time Out. Correct patient, correct procedure, correct physician, power injector loaded, or not loaded with contrast with :53:14 surgical team present. Time Out Concurred by MD and individual staff in procedure. 11:53:17 Case Start 10 mL 1% XYLOCAINE given in lab by Edinson Ramon in Right Groin via Subcutaneous. Ordered by Tristen 11:53:42 Edinson Goldman 11:54:54 25 mcg FENTANYL given in lab by Sondra Lewis, RN via Peripheral IV. Ordered by Edinson Ramon. 11:56:49 Access site was Right Femoral Artery. 11:57:05 A WIRE, 3MMJ .035 180CM 180CM was inserted via Fem Art (right). 11:57:07 HR=68 bpm, UGDP=133/83 mmhg, SpO2=95.0 %, Resp=11 B/min, Pain=0, Candy=10, Jones=2 A INTRODUCER SET, MICROPUNCTURE STIFF FR 5 was advanced into the Fem Art (right) using the Perc utaneous 11:57:15 technique. A SHEATH, FR5 TERUMO (10CM) FR 5 was exchanged in the Fem Art (right). This was necessary in or anil to 11:57:24 accomodate a larger catheter. Recorded Pressure: Ao, HR=74, Condition=Condition 1 11:57:47 (Aorta) Ao 145/80/103 11:58:05 An injection in the Fem Art (right) was made through the SHEATH, FR5 TERUMO (10CM) FR 5. A JR 4.0 DXTERITY CATHETER FR 5 was advanced over a wire. OMNIPAQUE, 350 MG, 150ML 150ML was us ed for 11:59:10 injections. Recorded Pressure: LV, HR=71, Condition=Condition 1 12:00:08 (Left Ventricle) LV 133/4/11 Recorded Pressure: LV, Ao, HR=75, Condition=Condition 1 12:00:23 (Left Ventricle) LV 134/4/10, (Aorta) Ao 137/68/104 12:00:46 The RCA was injected and visualized at various angles. OMNIPAQUE, 350 MG, 150ML 150ML used . After removing the current catheter a JL 4.0 INFINITI CATHETER FR 5 was advanced over a WIRE, 3 MMJ .035 180CM 12:01:49 180CM. 12:02:02 HR=83 bpm, ESEJ=536/96 mmhg, SpO2=94.0 %, Resp=12 B/min, Pain=0, Candy=10, Jones=2 12:03:18 The LCA was injected and visualized at various angles. OMNIPAQUE, 350 MG, 150ML 150ML used . 12:05:41 Catheter was removed 12:06:12 Case End 12:07:05 HR=78 bpm, PKDE=097/91 mmhg, SpO2=96.0 %, Resp=12 B/min, Pain=0, Candy=10, Jones=2 12:07:58 Sheath(s) left in place, will be removed in Holding Area Assessment: Final Case, HR=78 BPM, Rhythm=SR, SXYU=625/89 mmhg, Chest Pain=0, Edema=None, Hatch r=Normal, Skin = Warm, Dry Right Pulses: Benji Ped=1, Femoral=3 12:08:08 Left Pulses: Benji Ped=1, Femoral=3 Neurological: State=Alert, Ox3, LESTER Respiration: Resp=16 B/min, SpO2=97 % 12:08:29 Sterile dressing applied to site 12:08:32 No case complications noted. 12:08:33 Cine recording checked. 12:08:36 Bedside Report will be given. 12:08:43 A Left Heart Cath was performed. 12:12:04 HR=82 bpm, KKND=086/92 mmhg, SpO2=99.0 %, Resp=13 B/min, Pain=0, Candy=10, Jones=2 12:14:45 Patient moved to stretcher 12:16:41 Vitals capture stopped. End Study - Contrast Media Used In Study Contrast Total Opened (mL) Total Used (mL) Total Wasted (mL) Omnipaque 50 50 0 End Study - Maximum Contrast Load Max Contrast Load (mL) 285.0 End Study - Radiation Exposure Fluoro Time (minutes) 1.5 End Study - Patient Disposition Complications Transferred To No [facility] [employer] Holding
[2017-10-22] MEDS ORDERED: SODIUM CHLOR 0.9% 1000 ML INJ 1,000 ML IV SCH ×2 (12:28)
[2017-10-22] MEDS ORDERED: CARV6.25 PO (12:30)
[2017-10-22] MEDS ORDERED: MISC INFORMATION XX ONE (12:30)
--- NOTE | 2017-10-22 12:47 | MA ---
cc: Edinson Ramon DO DATE: 10/22/2017 PROCEDURE: Left heart catheterization, coronary angiogram. PREPROCEDURE DIAGNOSIS: Ventricular tachycardia/ventricular fibrillation on implantable cardioverter-defibrillator requiring antitachycardia pacing therapy. POSTPROCEDURE DIAGNOSIS: Mild coronary artery disease, nonischemic cardiomyopathy. MEDICATIONS: Fentanyl 25, potassium 40 mEq. CONTRAST USED: 50 mL. FLUOROSCOPY: 1.5 minutes. ANESTHESIA: Moderate sedation, 0 minutes. ESTIMATED BLOOD LOSS: 10 mL. PROCEDURAL SUMMARY: Avelino Veloz is a pleasant 57-year-old male who I see in the office and was noted to have ventricular tachycardia/ventricular fibrillation on ICD requiring ATP therapy. Because of this, he was recommended cardiac catheterization to rule out an ischemic substrate. Risks, benefits and alternatives were explained to him and he consented as such. He was brought to the lab and prepped in the usual sterile fashion. The right femoral artery was accessed using a modified Seldinger technique and placement of a 5-Palauan sheath. This was easily aspirated and flushed. A JR4 was advanced over a J-wire to the ascending aorta and across the aortic valve for measurement of left ventricular pressure. This was pulled back across the aortic valve showing no significant gradient of aortic stenosis. JR4 was used for selective angiography of the right coronary artery system. This was exchanged out for a JL4 which was used for selective angiography of the left coronary artery system. JL4 was removed over a J wire. Sheaths were pulled in the room with pressure held for hemostasis. The patient left the dental laboratory worker cardiovascularly stable. FINDINGS: Left main. A normal size vessel with adequate reflux. It bifurcates into an LAD and circumflex. LAD. A moderate to large size vessel with mild luminal irregularity throughout the mid to distal portion. It gives off 2 diagonals with the first one being large and no significant disease and the second one having 20% ostial stenosis. Left circumflex. A normal size vessel with mild luminal irregularities throughout the proximal and mid portion. It does give off 1 major obtuse marginal with no significant disease. RCA. A moderate size vessel with mild luminal irregularities. It is a dominant vessel by nature with no significant disease throughout. LVEDP 10. IMPRESSIONS: 1. Mild coronary artery disease. 2. Nonischemic cardiomyopathy. 3. Ventricular tachycardia/ventricular fibrillation on implantable cardioverter-defibrillator requiring antitachycardia pacing therapy. RECOMMENDATIONS: 1. Mr. Veloz appears to have no significant disease which led him to ventricular tachycardia. 2. We will continue to follow him on his ICD therapy. 3. I will plan on increasing his beta fred therapy to 12.5 mg twice a day. 4. Further episodes most likely will have to see EP for further recommendations. Thank you for allowing me to see Avelino Veloz. If there are any questions, please do not hesitate to call. Edinson Ramon DO VGP/DL , 12:25 PM , 12:46 PM
--- NOTE | 2017-10-22 12:58 | EKG ---
Date Performed: 10/22/2017 Time Performed: 10:46:42 PTAGE: 57 years EKG: Sinus rhythm . Left axis deviation Cannot rule out septal infarct - age undetermined LVH with secondary repolariza tion abnormality Lateral ST-T changes are probably due to ventricular hypertrophy Abnormal ECG PREVIOUS TRACING : 07/06/2016 04.44 DOCTOR: Beau Khan Interpretating Date/Time 10/22/2017 12:57:19
== END 2017-10-22 18:15 | disposition home or self-care (01) ==
LOC: HDIC 09:50 → HDOC 09:50
PROVIDERS: ATTEND Nuclear Medicine Nuclear Cardiology
DX: I25.10 Atherosclerotic heart disease of native coronary artery without angina pectoris (principal); I42.8 Other cardiomyopathies; I50.20 Unspecified systolic (congestive) heart failure; I47.2 Ventricular tachycardia; I49.01 Ventricular fibrillation; J44.9 Chronic obstructive pulmonary disease, unspecified; J45.909 Unspecified asthma, uncomplicated; Z79.82 Long term (current) use of aspirin
CPT/HCPCS: 80048; 85025; 85610; 85730; 93005; 93458; C1769; C1893; J1644; J2250; J3010; Q9967